=== PATIENT | male | born 1990 | race Caucasian/White ===

== ENCOUNTER 2018-05-05 17:17 | Emergency (ER) | payer OTHER, SELFPAY ==
[~2018-05-05] VITALS: Ht 185.4 cm; Wt 97.7 kg
[2018-05-05 17:17] VITALS: BP 148/83
[2018-05-05 17:43] LABS: APPEARANCE, URINE CLEAR (CLEAR); BACTERIA, URINE AUTO NEGATIVE (NEGATIVE); BILIRUBIN, URINE AUTO NEGATIVE (NEGATIVE); BLOOD, URINE BLOOD NEGATIVE (NEGATIVE); COLOR, URINE STRAW (YELLOW); GLUCOSE, URINE (UA) AUTO NEGATIVE (NEGATIVE); KETONE, URINE AUTO NEGATIVE (NEGATIVE); LEUKOCYTE ESTERASE, URINE AUTO NEGATIVE (NEGATIVE); NITRITE, URINE AUTO NEGATIVE (NEGATIVE); PROTEIN, URINE AUTO NEGATIVE (NEGATIVE); RBC, URINE AUTO 1 /HPF (0-3); SPECIFIC GRAVITY URINE AUTO 1.003 (1.002-1.035); SQUAMOUS EPITHELIAL CELL UR AU 0 /HPF (0-6); UROBILINOGEN, URINE AUTO 0.2 mg/dL (0.0-2.0); WBC, URINE AUTO 0 /HPF (0-3)
[2018-05-05] MEDS ORDERED: KETOROLAC 30 MG/ML VIAL (J1885) IV ONE (18:00)
[2018-05-05 18:15] LABS: BASO % 0.4 % (0.0-1.0); EOS # 0.1 10^3/uL (0.0-0.50); HEMATOCRIT 45.5 % (42.0-52.0); HEMOGLOBIN 15.4 g/dl (13.5-17.5); LYMPH # 2.3 10^3/uL (1.5-6.5); LYMPH % 29.5 % (24.0-44.0); MEAN CORPUSCULAR HEMOGLOBIN 30.1 pg (27.0-33.0); MEAN CORPUSCULAR HGB CONC 33.8 g/dl (32.0-36.5); MEAN CORPUSCULAR VOLUME 88.9 fl (80.0-96.0); MONO # 0.6 10^3/uL (0.0-0.8); MONO % 7.6 % (0.0-5.0); NEUTROPHILS # 4.9 10^3/uL (1.8-7.7); NEUTROPHILS % 61.2 % (36.0-66.0); PLATELET COUNT, AUTOMATED 184 10^3/uL (150-450); RED BLOOD COUNT 5.12 10^6/uL (4.30-6.10); WHITE BLOOD COUNT 7.9 10^3/uL (4.0-10.0)
[2018-05-05 18:44] LABS: ALBUMIN 3.9 GM/DL (3.2-5.2); ALT/SGPT 83 U/L (12-78); BILIRUBIN,DIRECT 0.1 MG/DL (0.0-0.2); BILIRUBIN,TOTAL 0.4 MG/DL (0.2-1.0); BLOOD UREA NITROGEN 19 MG/DL (7-18); CALCIUM LEVEL 8.9 MG/DL (8.5-10.1); CARBON DIOXIDE LEVEL 28 MEQ/L (21-32); CHLORIDE LEVEL 108 MEQ/L (98-107); CREATININE FOR GFR 1.29 MG/DL (0.70-1.30); GLOMERULAR FILTRATION RATE > 60.0 (>60); GLUCOSE, FASTING 94 MG/DL (70-100); LIPASE 125 U/L (73-393); POTASSIUM SERUM 4.3 MEQ/L (3.5-5.1); SODIUM LEVEL 143 MEQ/L (136-145); TOTAL PROTEIN 6.9 GM/DL (6.4-8.2)
--- NOTE | 2018-05-05 19:12 | REP ---
CT abdomen and pelvis without IV or oral contrast: History: Question right renal colic. Comparison study. History of renal stones. CT findings: Preliminary digital health care analyst radiograph is unremarkable. The lung bases are clear on axial CT images. The liver and the spleen are normal in size homogeneous in texture. Gallbladder and pancreas are unremarkable. No adrenal lesion is seen on either side. A normal appendix is seen in the right lower quadrant. Small and large intestinal bowel loops are unremarkable. There are dystrophic calcifications in the prostate. Seminal vesicles and urinary bladder are unremarkable. There is no evidence of left-sided hydronephrosis or left ureteral stone. There is moderate to marked hydronephrosis affecting the right kidney with a rounded ureteropelvic junction and no evidence of mass or calculus. This is consistent with right UPJ obstruction and resultant hydronephrosis. The ureter is not dilated. No ureteral stone is seen. There are degenerative disc changes at L5-S1 in the lumbar spine and to a lesser extent of L4-5. No acute bony destructive lesion is seen. Impression: Moderate to marked right-sided hydronephrosis with a rounded ureteropelvic junction and with out stone or mass. 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 There are dystrophic calcifications in the prostate. No other genitourinary tract abnormality. Otherwise negative CT study. Normal appendix. Electronically Signed by Michael Girard MD 05/05/2018 07:04 P
--- NOTE | 2018-05-07 08:25 | ED PDOC ---
Post-Departure Follow-Up radiology rpeor tfaxed to Selam Salas MD May 07, 2018 08:25
== END 2018-05-05 19:25 | disposition home or self-care (01) ==
LOC: M ED 17:17
DX: N13.30 Unspecified hydronephrosis (principal); Z87.442 Personal history of urinary calculi; Z88.1 Allergy status to other antibiotic agents; Z87.820 Personal history of traumatic brain injury
CPT/HCPCS: 74176; 80048; 80076; 81001; 83690; 85025; 96374; 99284; J1885

== ENCOUNTER 2018-06-30 14:39 | Emergency (ER) | payer OTHER ==
[~2018-06-30] VITALS: Ht 185.4 cm; Wt 100.0 kg
[2018-06-30 14:40] VITALS: BP 134/77
--- NOTE | 2018-06-30 15:15 | REP ---
LEFT FINGERS, FOUR VIEWS: HISTORY: Trauma left 4th digit. There is a nondisplaced comminuted fracture of the distal phalange of the 4th digit. There is no dislocation. The joint spaces are normal in appearance. IMPRESSION: Comminuted fracture of the 4th distal phalange. Electronically Signed by Hilario Gaspar MD 06/30/2018 03:18 P
[2018-06-30] MEDS ORDERED: KETO10TAB PO ×2 (16:43→16:59)
[2018-06-30] MEDS ORDERED: AUGM875T28 PO ×2 (16:43→16:59)
[2018-06-30] MEDS ORDERED: KETOROLAC TROMETHAMINE 10 MG TAB PO ONE (16:45)
[2018-06-30] MEDS ORDERED: NS 1,000 ML IV ONE (17:15)
[2018-06-30] MEDS ORDERED: methylPREDNISolone INJ 125 MG/2 ML VIAL (J2930) IV ONE (17:15)
== END 2018-06-30 16:54 | disposition home or self-care (01) ==
LOC: M ED 14:39
DX: S62.635A Displaced fracture of distal phalanx of left ring finger, initial encounter for closed fracture (principal); W23.0XXA Caught, crushed, jammed, or pinched between moving objects, initial encounter; Y92.39 Other specified sports and athletic area as the place of occurrence of the external cause; Y93.9 Activity, unspecified; Y99.9 Unspecified external cause status; Z86.19 Personal history of other infectious and parasitic diseases; Z87.442 Personal history of urinary calculi; Z87.820 Personal history of traumatic brain injury; Z88.1 Allergy status to other antibiotic agents

== ENCOUNTER 2018-08-28 12:24 | Emergency (ER) | payer OTHER ==
[~2018-08-28] VITALS: Ht 185.4 cm; Wt 100.0 kg
[~2018-08-28 12:24] MED LIST: AUGM875T28 PO; KETO10TAB PO
[2018-08-28 12:25] VITALS: BP 174/79
[2018-08-28] MEDS ORDERED: IBUP-1022 PO (13:32)
[2018-08-28] MEDS ORDERED: PENI500T PO (13:32)
== END 2018-08-28 13:59 | disposition home or self-care (01) ==
LOC: M ED 12:24
DX: K04.7 Periapical abscess without sinus (principal); K08.89 Other specified disorders of teeth and supporting structures; Z87.820 Personal history of traumatic brain injury; Z88.1 Allergy status to other antibiotic agents